=== PATIENT | male | born 2000 | race Caucasian/White ===

== ENCOUNTER 2021-08-27 15:19 | Emergency (ER) | payer OTHER ==
[2021-08-27 16:52] LABS: BLOOD UREA NITROGEN,BUN 13 mg/dL (7.0-18.0); CARBON DIOXIDE,CO2 24.7 mmol/L (21.0-32.0); CHLORIDE,CL 102 mmol/L (98-107); GLUCOSE RANDOM 91 mg/dL (74-106); SODIUM,NA 139 mmol/L (136-148)
--- NOTE | 2021-08-27 17:43 | PCM.EKG ---
#1 Interpretation EKG Interpretation Comments: EKG sinus rhythm heart rate 72 [place] [address] [place] 91. Late transition ST and T minimal ST changes in the anterior leads impression no acute injury
[2021-08-27] MEDS ORDERED: Sodium Chloride 0.9% 2.5 ML Syringe FLUSH PRN (18:17)
[2021-08-27] MEDS ORDERED: Sodium Chloride 0.9% 10 ML Syringe FLUSH PRN (18:17)
--- NOTE | 2021-08-27 18:21 | EDM.PDOC ---
ED HPI GENERAL MEDICAL PROBLEM - General Chief Complaint: Syncope Stated Complaint: DIZZY,FAINTING/TINGLING/HEADACHE Time Seen by Provider: 08/27/21 18:09 - History of Present Illness INITIAL COMMENTS - FREE TEXT/NARRATIVE: History of present illness: [] Patient says she has been tingling in her arms and legs for 3 weeks. She is also passing out for the last week. she had a Zio patch placed because of palpitations 24 hours ago by her doctor. She did not tell her doctor she is having these episodes. Her doctor also wanted to change her anxiety medicines by upping her dose but she has not started the new dose. During the interview she said when she passes out she is diaphoretic but she does not completely pass out. She does not shake and she denied incontinent urine. She does have urinary frequency and increased volume. review of systems: As per history of present illness and below otherwise all systems reviewed and negative. Past medical history: As per history of present illness and as reviewed below otherwise noncontributory. Surgical history: As per history of present illness and as reviewed below otherwise noncontributory. Social history: No reported history of drug or alcohol abuse. Family history: As per history of present illness and as reviewed below otherwise noncontributory. Physical exam: Constitutional - well developed, well-nourished and in no acute distress HEENT - normocephalic, no evidence of trauma - external nose and mouth normal - no mass in neck and no JVD - mucosae moist EYES - full EOM, PERRL, no icterus - no evidence of inflammation, injection, or drainage Respiratory - no respiratory distress, equal bilateral expansion, lungs clear to auscultation and no abnormal lung sounds Cardiovascular - Regular Rhythm with S1 and S2 appreciated and no murmur, gallop or rub. GI - abdomen soft without distension or organomegaly - normal bowel sounds - no guard or rebound Musculoskeletal no gross deformity of long bones or joints - no tenderness, swelling or edema Neurologic - Alert and oriented times four - CN II-XII grossly intact - motor sensory and coordination symmetrically normal Psychiatric - appropriate mood and affect with normal thought content Hematologic - No petechiae or purpura - mucosa appropriate color and sclera not pale - normal nail bed color and refill Integument - no rash or evidence of trauma - normal turgor Diagnostics: [] Therapeutics: [] Impression: [] Plan: [] Definitive disposition and diagnosis as appropriate pending reevaluation and review of above. - Related Data Allergies Allergy/AdvReac Type Severity Reaction Status Date / Time latex Allergy Hives Verified 08/27/21 15:30 sulfa drugs Allergy Vomiting Uncoded 08/27/21 15:30 Home Meds: Home Meds Albuterol Sulfate [Proair Respiclick] 90 mcg IH 08/27/21 [History] Fluticasone Propionate [Flovent HFA 110 MCG] 1 puff INH BID 08/27/21 [History] Montelukast [Singulair] 10 mg PO DAILY 08/27/21 [History] Prochlorperazine [Compazine] 10 mg PO Q6H PRN 08/27/21 [History] Rizatriptan Benzoate [Rizatriptan] 10 mg PO 08/27/21 [History] Topiramate [Topamax] 75 mg PO 08/27/21 [History] Venlafaxine [Effexor] 75 mg PO DAILY 08/27/21 [History] hydrOXYzine HCL [Atarax] 25 mg PO Q8H PRN #30 tab 08/27/21 [Rx] Past Medical History 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 ED EXAM, GENERAL - Physical Exam Exam: See Below Free Text/Narrative:: My physical exam is in the HPI Course - Vital Signs Text/Narrative:: Symptoms more consistent with hyperventilation and near syncope possibly vasovagal. Plan treatment as such. Last Recorded V/S: Last Vital Signs Temp Pulse 78 08/27/21 15:36 Resp 16 08/27/21 15:36 BP 120/85 08/27/21 15:36 Pulse Ox 98 08/27/21 15:36 - Orders/Labs/Meds Orders: Active Orders 24 hr Category Date Time Status Naproxen [Naprosyn] Med 08/27/21 18:48 Once 500 mg PO ONETIME ONE Sodium Chloride 0.9% [Saline Flush] Med 08/27/21 18:17 Active 10 ml FLUSH ASDIRECTED PRN Sodium Chloride 0.9% [Saline Flush] Med 08/27/21 18:17 Active 2.5 ml FLUSH ASDIRECTED PRN Saline Lock Insert [OM.PC] Stat Oth 08/27/21 18:17 Ordered Medication Orders Naproxen (Naproxen 500 Mg Tab) 500 mg PO ONETIME ONE Stop: 08/27/21 18:49 Sodium Chloride (Sodium Chloride 0.9% 10 Ml Syringe) 10 ml FLUSH ASDIRECTED PRN PRN Reason: Keep Vein Open Sodium Chloride (Sodium Chloride 0.9% 2.5 Ml Syringe) 2.5 ml FLUSH ASDIRECTED PRN PRN Reason: Keep Vein Open Labs: Laboratory Tests 08/27/21 08/27/21 08/27/21 Range/Units 16:12 16:12 16:12 WBC 5.51 (4.0-11.0) K/uL RBC 4.55 (4.50-5.90) M/uL Hgb 15.3 (13.0-17.0) g/dL Hct 42.9 (38.0-50.0) % MCV 94.3 (80.0-98.0) fL MCH 33.6 H (27.0-32.0) pg MCHC 35.7 (31.0-37.0) g/dL RDW Std Deviation 42.2 (28.0-62.0) fl RDW Coeff of Mode 12 (11.0-15.0) % Plt Count 223 (150-400) K/uL MPV 10.50 (7.40-12.00) fL Neut % (Auto) 53.9 (48.0-80.0) % Lymph % (Auto) 37.0 (16.0-40.0) % [place] % (Auto) 7.8 (0.0-15.0) % Eos % (Auto) 0.9 (0.0-7.0) % Baso % (Auto) 0.4 (0.0-1.5) % Neut # (Auto) 3.0 (1.4-5.7) K/uL Lymph # (Auto) 2.0 (0.6-2.4) K/uL [place] # (Auto) 0.4 (0.0-0.8) K/uL Eos # (Auto) 0.1 (0.0-0.7) K/uL Baso # (Auto) 0.0 (0.0-0.1) K/uL Nucleated RBC % 0.0 /100WBC Nucleated RBCs # 0 K/uL Sodium 139 (136-148) mmol/L Potassium 4.0 (3.5-5.1) mmol/L Chloride 102 (98-107) mmol/L Carbon Dioxide 24.7 (21.0-32.0) mmol/L BUN 13 (7.0-18.0) mg/dL Creatinine 1.0 (0.8-1.3) mg/dL Est Cr Clr Drug Dosing TNP Estimated GFR (MDRD) > 60.0 ml/min Glucose 91 (74-106) mg/dL Calcium 9.2 (8.5-10.1) mg/dL Magnesium 2.5 H (1.8-2.4) mg/dL Total Bilirubin 0.9 (0.2-1.0) mg/dL AST 20 (15-37) IU/L ALT 27 (14-63) IU/L Alkaline Phosphatase 54 (46-116) U/L Troponin I < 0.050 (0.000-0.056) ng/mL Total Protein 8.2 (6.4-8.2) g/dL Albumin 4.0 (3.4-5.0) g/dL Globulin 4.2 H (2.6-4.0) g/dL Albumin/Globulin Ratio 1.0 (0.9-1.6) Meds: Medications Generic Name Dose Route Start Last Admin Trade Name Freq PRN Reason Stop Dose Admin Naproxen 500 mg 08/27/21 18:48 Naproxen 500 Mg Tab PO 08/27/21 18:49 ONETIME ONE Sodium Chloride 10 ml 08/27/21 18:17 Sodium Chloride 0.9% 10 Ml Syringe FLUSH ASDIRECTED PRN Keep Vein Open Sodium Chloride 2.5 ml 08/27/21 18:17 Sodium Chloride 0.9% 2.5 Ml Syringe FLUSH ASDIRECTED PRN Keep Vein Open Departure - Departure Time of Disposition: 18:49 Disposition: Home, Self-Care 01 Condition: Good Clinical Impression: Near syncope, Paresthesias - Discharge Information Referrals: PCP,None [Primary Care Provider] - Forms: ED Department Discharge Additional Instructions: It does not appear like you are having stroke symptoms or ischemia to your heart. Please continue to wear your patch and follow-up with your doctor. A medication to help you relax has been sent to the pharmacy because you have symptoms of tingling on both sides of your body are frequently related to hyperventilation. This may not be a conscious thing but controlling your breathing is the best thing to do and when you have symptoms that are bad he could breathe into a paper bag and reassure yourself that that in fact helps the tingling. [facility] [address] [place] [id number] [address] [address] The following information is given to patients seen in the emergency department who are being discharged to home. This information is to outline your options for follow-up care. We provide all patients seen in our emergency department with a follow-up referral. The need for follow-up, as well as the timing and circumstances, are variable d epending upon the specifics of your emergency department visit. If you don't have a primary care physician on staff, we will provide you with a referral. We always advise you to contact your personal physician following an emergency department visit to inform them of the circumstance of the visit and for follow-up with them and/or the need for any referrals to a consulting specialist. The emergency department will also refer you to a specialist when appropriate. This referral assures that you have the opportunity for follow-up care with a specialist. All of these measure are taken in an effort to provide you with optimal care, which includes your follow-up. Under all circumstances we always encourage you to contact your private physician who remains a resource for coordinating your care. When calling for follow-up care, please make the office aware that this follow-up is from your recent emergency room visit. If for any reason you are refused follow-up, please contact the [facility] at and asked to speak to the emergency department charge nurse. Sepsis Event Note (ED) - Evaluation Sepsis Screening Result: No Definite Risk - Focused Exam Vital Signs: Vital Signs Pulse Resp BP Pulse Ox 08/27/21 15:36 78 16 120/85 98 - My Orders Last 24 Hours: My Active Orders 08/27/21 18:17 Sodium Chloride 0.9% [Saline Flush] 10 ml FLUSH ASDIRECTED PRN Sodium Chloride 0.9% [Saline Flush] 2.5 ml FLUSH ASDIRECTED PRN Saline Lock Insert [OM.PC] Stat 08/27/21 18:48 Naproxen [Naprosyn] 500 mg PO ONETIME ONE - Assessment/Plan Last 24 Hours: My Active Orders 08/27/21 18:17 Sodium Chloride 0.9% [Saline Flush] 10 ml FLUSH ASDIRECTED PRN Sodium Chloride 0.9% [Saline Flush] 2.5 ml FLUSH ASDIRECTED PRN Saline Lock Insert [OM.PC] Stat 08/27/21 18:48 Naproxen [Naprosyn] 500 mg PO ONETIME ONE
[2021-08-27] MEDS ORDERED: Naproxen 500 MG Tab PO ONE (18:48)
[2021-08-27] MEDS ORDERED: diphenhydrAMINE 50 MG/ML SDV IVPUSH ONE (18:56)
[2021-08-27] MEDS ORDERED: Metoclopramide 10 MG/2 ML SDV IVPUSH ONE (18:56)
[2021-08-27] MEDS ORDERED: Ketorolac 30 MG/ML SDV IVPUSH ONE (18:56)
== END 2021-08-27 19:22 | disposition home or self-care (01) ==
LOC: MW.ED 15:19
DX: R55 Syncope and collapse (principal); R20.2 Paresthesia of skin; Z91.040 Latex allergy status; Z88.2 Allergy status to sulfonamides; Z79.899 Other long term (current) drug therapy
CPT/HCPCS: 36415; 80053; 83735; 84484; 85025; 93005; 96374; 96375; 99284; A9270; J1200; J1885; J2765